=== PATIENT | female | born 1945 | race Caucasian/White ===

== ENCOUNTER 2023-09-18 09:00 | Day surgery (SDC) | payer OTHER ==
[~2023-09-18] VITALS: Ht 149.9 cm; Wt 80.7 kg
[2023-09-18] MEDS ORDERED: MIDAZOLAM 2 MG/2 ML VIAL ONE (13:19)
[2023-09-18] MEDS ORDERED: fentaNYL citrate 0.05 MG/ML VIAL ONE (13:19)
[2023-09-18] MEDS ORDERED: MIDAZOLAM 2 MG/2 ML VIAL IVP ONE (14:20)
== END 2023-09-18 14:20 | disposition home or self-care (01) ==
LOC: MDS 09:00 → MMU 10:26 → MDS 14:20
PROVIDERS: ATTEND Internal Medicine Gastroenterology
DX: K21.9 Gastro-esophageal reflux disease without esophagitis (principal)
CPT/HCPCS: 43235; J2250; J3010